=== PATIENT | female | born 1985 | race African-American/Black ===

== ENCOUNTER 2017-02-05 15:48 | Emergency (ER) | payer OTHER ==
[2017-02-05 15:50] VITALS: BP 132/92; PULSE 109; RESP 15; TEMP 98.4; O2SAT 98
[2017-02-05] MEDS ORDERED: KETOROLAC TROMETHAMINE 60 MG/2 ML (IM) VIAL IM ONE (17:00)
[2017-02-05] MEDS ORDERED: ORPHENADRINE INJ 60 MG/2 ML AMP IM ONE (17:00)
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
[2017-02-05] MEDS ORDERED: NAPR500T2 PO (17:01)
[2017-02-05] MEDS ORDERED: ROBA500T PO (17:01)
== END 2017-02-05 17:23 | disposition home or self-care (01) ==
LOC: NEPK 15:48
DX: M54.2 Cervicalgia (principal); M54.9 Dorsalgia, unspecified; Z79.899 Other long term (current) drug therapy; V43.52XA Car driver injured in collision with other type car in traffic accident, initial encounter
CPT/HCPCS: 96372; 99284; J1885; J2360

== ENCOUNTER 2017-02-08 08:30 | Emergency (ER) | payer SELFPAY ==
[~2017-02-08 08:30] MED LIST: NAPR500T2 PO; ROBA500T PO
[2017-02-08 08:32] VITALS: BP 133/88; PULSE 99; RESP 16; TEMP 98.2; O2SAT 100
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
== END 2017-02-08 09:19 | disposition left against medical advice (07) ==
LOC: NEPD 08:30
DX: M54.6 Pain in thoracic spine (principal)
CPT/HCPCS: 99281